=== PATIENT | male | born 2000 | race African-American/Black ===

== ENCOUNTER 2022-11-25 19:41 | Emergency (ER) | payer SELFPAY ==
[~2022-11-25] VITALS: Ht 177.8 cm; Wt 71.0 kg
[2022-11-25 19:45] VITALS: O2SAT 98
[2022-11-25 21:00] VITALS: BP 126/72; PULSE 97; RESP 16; TEMP 98
== END 2022-11-25 21:17 | disposition home or self-care (01) ==
LOC: ER 19:41
DX: F19.10 Other psychoactive substance abuse, uncomplicated (principal); R06.02 Shortness of breath
CPT/HCPCS: 71045; 93005; 99283